=== PATIENT | male | born 1965 | race Caucasian/White ===

== ENCOUNTER 2016-11-30 10:38 | Emergency (ER) | payer BC ==
[~2016-11-30] VITALS: Ht 172.7 cm; Wt 73.0 kg
[~2016-11-30 10:38] MED LIST: CIPR500T4 PO; PENI500T PO; TRAM50 PO; ZITH1POW PO
[2016-11-30 10:40] VITALS: BP 139/82; PULSE 80; RESP 16; TEMP 97.7; O2SAT 98
--- NOTE | 2016-11-30 11:19 | PD ---
HPI Chief Complaint: Complaint Time Seen by Provider: 11:15 Travel History International Travel<30 days: No Contact w/Intl Traveler<30days: No Traveled to known affect area: No History of Present Illness HPI Patient comes in complaining of epididymitis on his right testicle that began approximately week ago. Patient states pains got worse over the past several days. Patient reports this is his fourth episode of epididymitis since having a vasectomy, but reports it usually affects his left testicle. Patient describes pain as sharp and achy like in nature without radiation. Denies any dysuria, abdominal pain, or fevers. Patient states 2 weeks ago was was sick with a sore throat and fever that lasted a couple of days and is uncertain if this may have anything to do with that or not. Patient states his urologist liquids and Cipro whenever he gets this, but is uncertain if he has ever been diagnosed with a infectious process causing it. [facility] Past Medical History Narrative Medical Epididymitis Social History Alcohol Use: No Tobacco Use: No Substance Use: No Allergies-Medications (Allergen,Severity, Reaction): Coded Allergies: No Known Allergies (Verified , 11/30/16) Reported Meds & Prescriptions Reported Meds & Active Scripts Active Cipro (Ciprofloxacin HCl) 500 Mg Tab 500 Mg PO BID [address] (Diclofenac Sodium) 75 Mg Tabdr 75 Mg PO Q12HR PRN Review of Systems Except as stated in HPI: all other systems reviewed are Neg Physical Exam Narrative GENERAL: Well-developed, well nourished, in no acute distress, and non-ill appearing. SKIN: Warm and dry. HEAD: Atraumatic. Normocephalic. EYES: Pupils equal and round. EOMI. No scleral icterus. No injection or drainage. ENT: No nasal bleeding or discharge. Mucous membranes pink and moist. NECK: Trachea midline. Supple. No nuclear rigidity. RESPIRATORY: No accessory muscle use. No respiratory distress. GASTROINTESTINAL: Abdomen soft, non-tender, nondistended. Hepatic and splenic margins not palpable. No pulsatile mass. GENITOURINARY: Uncircumcised. Testes descended bilaterally without evidence of rotation. No lesions or erythema. No urethral discharge. Right epididymis is swollen and tender compared to left. MUSCULOSKELETAL: No obvious deformities. No clubbing. No cyanosis. No edema. Full range of motion. NEUROLOGICAL: Awake and alert. No obvious cranial nerve deficits. Motor grossly within normal limits. Normal speech. PSYCHIATRIC: Appropriate mood and affect; insight and judgment normal. Data Data Last Documented VS Vital Signs Date Time Temp Pulse Resp B/P Pulse Ox O2 Delivery O2 Flow Rate FiO2 11/30/16 10:40 97.7 80 16 139/82 98 Room Air Orders Urinalysis - C+S If Indicated (11/30/16 11:19) Gc And Chlamydia Pcr (11/30/16 11:19) Sodium Chloride 0.9% Flush (Ns Flush) (11/30/16 11:30) Urine Culture (11/30/16 12:07) Labs Laboratory Tests Test 11/30/16 11:45 Urine Color LIGHT-YELLOW Urine Turbidity CLEAR Urine pH 5.5 Urine Specific [place] 1.004 Urine Protein NEG mg/dL Urine Glucose (UA) NEG mg/dL Urine Ketones NEG mg/dL Urine Occult Blood NEG Urine Nitrite NEG Urine Bilirubin NEG Urine Urobilinogen LESS THAN 2.0 MG/DL Urine Leukocyte Esterase NEG Urine RBC LESS THAN 1 /hpf Microscopic Urinalysis Comment CULT NOT INDICATED MDM Medical Decision Making Medical Screen Exam Complete: Yes Emergency Medical Condition: Yes Differential Diagnosis Epididymitis, orchitis, STD, other Narrative Course The patient presents with symptoms and exam classic for epididymitis. There is no evidence by history to suggest torsion. On exam the testicle is in normal position. The right epididymis is enlarged and tender. There are no external lesions or ulcerations. The patient was treated. The patient was instructed to follow up with his urologist. Discussed potential side effects of Cipro including tendon rupture. Patient agreed with plan. Patient in no obvious distress upon re-evaluation. Discussed patient with Dr. Jc, who is in agreement with plan of care and disposition. Patient was asked if they wanted to speak to my attending, which the patient did not wish to do at this time. Any questions/concerns in reference to patient diagnosis/ condition discussed and clarified prior to patient's discharge. Reinforced sheer importance of close follow up with patient's primary physician or primary care clinic. Instructed patient to return to ED immediately, if symptoms return/ worsen. Pt showed understanding of above instructions. Further instructions and recommendations were detailed in discharge paperwork. Pt ambulated without difficulty out of ED at discharge. Diagnosis Primary Impression: Epididymitis, right Patient Instructions: Epididymitis (ED), General Instructions Additional Instructions: Follow-up with your primary care physician and/or urologist this upcoming week for reevaluation. Take all medication as prescribed. Return to the emergency department if symptoms get worse. Med/Other Pt SpecificInfo: Prescription(s) given Scripts Ciprofloxacin (Cipro)500 Mg Qsq827 Mg PO BID 7 Days Ref 0 Prov:Donnie Jc MD 11/30/[address] 75 Mg Tabdr75 Mg PO Q12HR PRN (PAIN SCALE 1 TO 10) #20 TAB Ref 0 Prov:Donnie Jc MD 11/30/16 Disposition: 01 DISCHARGE HOME Condition: Stable Pete Grijalva Nov 30, 2016 11:19
[2016-11-30] MEDS ORDERED: DICL75TA PO (11:23)
[2016-11-30] MEDS ORDERED: SODIUM CHLORIDE 0.9% FLUSH 5 ML FLUSH IVF PRN (11:30)
[2016-11-30] MEDS ORDERED: CIPR-9 PO (11:34)
[2016-11-30 11:55] LABS: BLOOD, URINE NEG (NEG); GLUCOSE,URINE NEG (NEG); KETONE, URINE NEG (NEG); NITRITE,URINE NEG (NEG); PH, URINE 5.5 (5.0-8.5); URINE COLOR LIGHT-YELLOW (YELLW/STRAW)
[2016-11-30 12:00] LABS: COMMENT (UR) CULT NOT INDICATED; CULTURE IF INDICATED CULT NOT INDICATED
[2016-11-30 15:19] LABS: CHLAMYDIA PCR NOT DETECTED (NOT DETECT); NEISSERIA PCR NOT DETECTED (NOT DETECT)
== END 2016-11-30 12:34 | disposition home or self-care (01) ==
LOC: NEPE 10:38
DX: N45.1 Epididymitis (principal)
CPT/HCPCS: 81001; 87086; 87491; 87591; 99284

== ENCOUNTER 2018-03-20 22:42 | Inpatient (IN) | payer OTHER, BC ==
[2018-03-20] MEDS: ceFAZolin 2 GM PREMIX 100 ML IV (23:00)
[2018-03-20] MEDS ORDERED: SODIUM CHLORIDE 0.9% FLUSH 10 ML FLUSH IVF (23:00)
[2018-03-20 23:15] LABS: AUTOMATED NEUTROPHIL # 4.3 TH/MM3 (1.8-7.7); BASOPHIL % 0.6 % (0.0-2.0); EOSINOPHIL # 0.3 TH/MM3 (0-0.4); HEMATOCRIT 39.1 % (39.0-51.0); HEMO FLAGS DIFF FINAL; LYMPH % 29.8 % (9.0-44.0); LYMPHOCYTE # 2.2 TH/MM3 (1.0-4.8); MEAN CELL VOLUME 88.9 FL (80.0-100.0); MEAN CORPUSCULAR HEMOGLOBIN 31.9 PG (27.0-34.0); MEAN CORPUSCULAR HGB CONC 35.9 % (32.0-36.0); MEAN PLATELET VOLUME 7.4 FL (7.0-11.0); MONOCYTE # 0.6 TH/MM3 (0-0.9); NEUT % 57.6 % (16.0-70.0); PLATELET COUNT 184 TH/MM3 (150-450); RED BLOOD COUNT 4.39 MIL/MM3 (4.50-5.90); RED CELL DISTRIBUTION WIDTH 12.8 % (11.6-17.2); WHITE BLOOD COUNT 7.5 TH/MM3 (4.0-11.0)
[2018-03-20 23:22] LABS: APTT (PATIENT) 22.8 SEC (24.3-30.1)
[2018-03-20 23:38] LABS: ANION GAP 10 MEQ/L (5-15); BICARBONATE 27.3 MEQ/L (21.0-32.0); BLOOD UREA NITROGEN 14 MG/DL (7-18); CALCIUM 8.6 MG/DL (8.5-10.1); CHLORIDE 104 MEQ/L (98-107); CREATININE 0.96 MG/DL (0.60-1.30); GLOMERULAR FILTRATION RATE 83 ML/MIN (>89); GLUCOSE,RANDOM 123 MG/DL (74-106); POTASSIUM 3.4 MEQ/L (3.5-5.1); SODIUM (NA) 141 MEQ/L (136-145)
[2018-03-20] MEDS: DIPHTH/TETANUS/ACEL PERTUSSIS (BOOSTER) 0.5 ML VIAL/PFS IM (23:52)
[2018-03-20] MEDS: ceFAZolin 2 GM PREMIX 50 ML (23:53)
[2018-03-21] MEDS ORDERED: NALOXONE HCL 0.4 MG/ML AMP IV PUSH (01:00)
[2018-03-21] MEDS ORDERED: ACETAMINOPHEN/HYDROcodone 325 MG/5 MG TAB PO (01:00)
[2018-03-21] MEDS: Post-op Orders (for Pharmacy) XX ×2 (01:00→11:15)
[2018-03-21] MEDS ORDERED: SODIUM CHLORIDE 0.9% FLUSH 10 ML FLUSH IV FLUSH (01:00)
[2018-03-21] MEDS ORDERED: BISACODYL 10 MG SUPP RECTAL (01:00)
[2018-03-21] MEDS: HYDROmorphone HCL PF 2 MG/ML VIAL IV PUSH ×3 (01:12→21:54)
[2018-03-21] MEDS: SODIUM CHLOR 0.9% 1000 ML INJ 1,000 ML IV (02:05)
[2018-03-21] MEDS ORDERED: CHLORHEXIDINE GLUCONATE 2 % 1 PACK (2 CLOTHS) TOPICAL (02:15)
[2018-03-21] MEDS ORDERED: LACTATED RINGER'S 1000 ML IV (02:15)
[2018-03-21] MEDS ORDERED: POVIDONE IODINE 5% (ANTISEPSIS KIT) 4 APPLICATIONS EACH NARE (02:15)
[2018-03-21] MEDS ORDERED: SODIUM CHLORID 0.9% 500 ML IV (02:15)
[2018-03-21] MEDS: METHOCARBAMOL 500 MG TAB PO ×3 (06:45→21:54)
[2018-03-21] MEDS: ceFAZolin INJ 1,000 MG VIAL (07:53)
[2018-03-21] MEDS: HYDROmorphone HCL PF 2 MG/ML VIAL (08:50)
[2018-03-21] MEDS: SODIUM CHLORIDE 0.9% FLUSH 10 ML FLUSH IV FLUSH ×2 (09:00→21:54)
[2018-03-21] MEDS: FAMOTIDINE 20 MG/2 ML VIAL IV PUSH ×2 (09:00→21:54)
[2018-03-21] MEDS: BACITRACIN TOP OINT 15 GM TUBE TOPICAL ×2 (09:00→21:55)
[2018-03-21] MEDS: SODIUM CHLOR 0.9% 250 ML INJ 250 ML (09:07)
[2018-03-21] MEDS: ceFAZolin 2 GM PREMIX 50 ML (09:12)
[2018-03-21] MEDS: VANCOMYCIN HCL 1000 MG VIAL (09:15)
[2018-03-21] MEDS: ACETAMINOPHEN 1000 MG/100 ML 100 ML IV (09:41)
[2018-03-21] MEDS: GENTAMICIN SULFATE 80 MG/2 ML VIAL (09:45)
[2018-03-21] MEDS ORDERED: DEXT 5%-NACL 0.45% 1000 ML INJ 1,000 ML IV (11:04)
[2018-03-21] MEDS ORDERED: NURSING INFORMATION XX (11:15)
[2018-03-21] MEDS ORDERED: diphenhydrAMINE HCL 25 MG CAP PO (11:15)
[2018-03-21] MEDS ORDERED: ONDANSETRON ODT 4 MG TAB SL (11:15)
[2018-03-21] MEDS: PHARMACY INFORMATION XX (11:15)
[2018-03-21] MEDS ORDERED: ACETAMINOPHEN/HYDROcodone 325 MG/7.5 MG TAB PO (11:15)
[2018-03-21] MEDS ORDERED: MORPHINE SULFATE 4 MG/ML INJ IV PUSH (11:15)
[2018-03-21] MEDS ORDERED: DO NOT ADM ANY ANTICOAGULANT DRUGS (11:26)
[2018-03-21] MEDS: *morphine SULFATE 4 MG/ML PERIprocedure ONLY (11:31)
[2018-03-21] MEDS: GABAPENTIN 300 MG CAP PO (18:13)
[2018-03-21] MEDS: DOCUSATE SODIUM 50 MG/SENNA 8.6 MG TAB PO (21:54)
[2018-03-22] MEDS: HYDROmorphone HCL PF 2 MG/ML VIAL IV PUSH ×2 (01:48→07:41)
[2018-03-22 05:56] LABS: HEMATOCRIT 34.7 % (39.0-51.0); HEMOGLOBIN 11.8 GM/DL (13.0-17.0); MEAN CELL VOLUME 90.9 FL (80.0-100.0); MEAN CORPUSCULAR HGB CONC 34.1 % (32.0-36.0); MEAN PLATELET VOLUME 7.2 FL (7.0-11.0); PLATELET COUNT 176 TH/MM3 (150-450); RED BLOOD COUNT 3.82 MIL/MM3 (4.50-5.90); RED CELL DISTRIBUTION WIDTH 13.4 % (11.6-17.2); REVIEW FLAG FINAL; WHITE BLOOD COUNT 6.9 TH/MM3 (4.0-11.0)
[2018-03-22] MEDS: METHOCARBAMOL 500 MG TAB PO ×3 (06:00→23:39)
[2018-03-22 06:31] LABS: ANION GAP 6 MEQ/L (5-15); BICARBONATE 29.1 MEQ/L (21.0-32.0); BLOOD UREA NITROGEN 16 MG/DL (7-18); CALCIUM 8.3 MG/DL (8.5-10.1); CHLORIDE 105 MEQ/L (98-107); CREATININE 1.08 MG/DL (0.60-1.30); GLOMERULAR FILTRATION RATE 72 ML/MIN (>89); GLUCOSE,RANDOM 109 MG/DL (74-106); POTASSIUM 4.2 MEQ/L (3.5-5.1); SODIUM (NA) 140 MEQ/L (136-145)
[2018-03-22] MEDS: GABAPENTIN 300 MG CAP PO ×3 (07:41→17:38)
[2018-03-22] MEDS: FAMOTIDINE 20 MG/2 ML VIAL IV PUSH (07:41)
[2018-03-22] MEDS: DOCUSATE SODIUM 50 MG/SENNA 8.6 MG TAB PO ×2 (07:41→20:17)
[2018-03-22] MEDS: MULTIVITAMINS/MINERALS THERAPEUTIC TAB PO (07:42)
[2018-03-22] MEDS: SODIUM CHLORIDE 0.9% FLUSH 10 ML FLUSH IV FLUSH ×2 (07:42→20:17)
[2018-03-22] MEDS: BACITRACIN TOP OINT 15 GM TUBE TOPICAL ×2 (08:35→21:00)
[2018-03-22] MEDS: ENOXAPARIN SODIUM 40 MG/0.4 ML SYRINGE SQ (11:26)
[2018-03-22] MEDS: ACETAMINOPHEN/HYDROcodone 325 MG/7.5 MG TAB PO ×2 (12:36→20:16)
[2018-03-22] MEDS: traMADol HCL 50 MG TAB PO ×2 (19:07→23:39)
[2018-03-23] MEDS: ACETAMINOPHEN/HYDROcodone 325 MG/7.5 MG TAB PO ×3 (05:14→15:55)
[2018-03-23] MEDS: METHOCARBAMOL 500 MG TAB PO ×2 (05:14→14:04)
[2018-03-23 05:50] LABS: HEMATOCRIT 31.8 % (39.0-51.0); HEMOGLOBIN 11.2 GM/DL (13.0-17.0); MEAN CELL VOLUME 90.6 FL (80.0-100.0); MEAN CORPUSCULAR HEMOGLOBIN 31.9 PG (27.0-34.0); MEAN CORPUSCULAR HGB CONC 35.3 % (32.0-36.0); MEAN PLATELET VOLUME 7.4 FL (7.0-11.0); PLATELET COUNT 154 TH/MM3 (150-450); RED BLOOD COUNT 3.51 MIL/MM3 (4.50-5.90); RED CELL DISTRIBUTION WIDTH 12.9 % (11.6-17.2); REVIEW FLAG FINAL; WHITE BLOOD COUNT 6.8 TH/MM3 (4.0-11.0)
[2018-03-23 06:18] LABS: ANION GAP 6 MEQ/L (5-15); BICARBONATE 32.5 MEQ/L (21.0-32.0); BLOOD UREA NITROGEN 13 MG/DL (7-18); CALCIUM 7.8 MG/DL (8.5-10.1); CHLORIDE 101 MEQ/L (98-107); CREATININE 0.81 MG/DL (0.60-1.30); GLOMERULAR FILTRATION RATE 101 ML/MIN (>89); GLUCOSE,RANDOM 99 MG/DL (74-106); POTASSIUM 3.9 MEQ/L (3.5-5.1); SODIUM (NA) 139 MEQ/L (136-145)
[2018-03-23] MEDS: DOCUSATE SODIUM 50 MG/SENNA 8.6 MG TAB PO (07:53)
[2018-03-23] MEDS: GABAPENTIN 300 MG CAP PO ×2 (07:53→12:29)
[2018-03-23] MEDS: SODIUM CHLORIDE 0.9% FLUSH 10 ML FLUSH IV FLUSH (07:53)
[2018-03-23] MEDS: MULTIVITAMINS/MINERALS THERAPEUTIC TAB PO (07:53)
[2018-03-23] MEDS: BACITRACIN TOP OINT 15 GM TUBE TOPICAL (07:55)
[2018-03-23] MEDS: ENOXAPARIN SODIUM 40 MG/0.4 ML SYRINGE SQ (10:51)
== END 2018-03-23 17:56 | disposition home or self-care (01) | DRG 494 ==
LOC: NEPE 22:42 → NEDA 03-21 00:10 → N06B 03-21 01:40
PROC: 0QBJ0ZZ Excision of Right Fibula, Open Approach (ICD-10-PCS; principal; 2018-03-21 08:52)
PROC: 0QSG06Z Reposition Right Tibia with Intramedullary Internal Fixation Device, Open Approach (ICD-10-PCS; 2018-03-21 08:52)
PROC: 0LQL0ZZ Repair Right Upper Leg Tendon, Open Approach (ICD-10-PCS; 2018-03-21 08:52)
DX: S82.251B Displaced comminuted fracture of shaft of right tibia, initial encounter for open fracture type I or II (principal); F17.200 Nicotine dependence, unspecified, uncomplicated; S82.431B Displaced oblique fracture of shaft of right fibula, initial encounter for open fracture type I or II; S82.421A Displaced transverse fracture of shaft of right fibula, initial encounter for closed fracture; V29.88XA Motorcycle rider (driver) (passenger) injured in other specified transport accidents, initial encounter; Y92.410 Unspecified street and highway as the place of occurrence of the external cause
CPT/HCPCS: 72040; 73590; 73620; 76000; 80048; 85025; 85027; 85610; 85730; 86077; 86850; 86870; 86900; 86901; 86902; 86920; 86922; 90715; 93005; 94150; 97110-GP; 97116-GP; 97161-GP